=== PATIENT | female | born 1955 | race Caucasian/White ===

== ENCOUNTER → 2016-10-24 | Outpatient (CLI) | payer OTHER, SELFPAY ==
[~2016-10-24] MED LIST: /ESCI10TA; /LABE20TA; ACET65TA; ALTACE PO; AMLO10TA2 PO; ASPEC325 PO; BABY81CH PO; CAHNTIXC PO; CATA0.1T; CHAN0.5P PO; DRIS50002 PO; FURO20TA2 PO; HCTZ50 PO; HYDROXYZINE; KEFLEX500 PO; LIPITOR20 PO; LISI20TA5; LOSA100T36 PO; METOPROL PO; NICO14DI3; OMEP40CA2 PO; PLAV75TA2; PRILOSECOT PO; PROZ40CA PO; THERAGRAM PO; ZOCO40TA; ZOCO5TAB
[2016-10-24 11:21] LABS: BASO % 0.3 % (0.0-1.0); EOS # 0.3 K/mm3 (0.0-0.50); EOS % 3.6 % (0.0-3.0); LARGE UNSTAINED CELL # 0.2 K/mm3 (0.0-0.4); LARGE UNSTAINED CELL % 2.6 % (0.0-4.0); LYMPH # 2.3 K/mm3 (1.5-4.5); LYMPH % 26.1 % (24.0-44.0); MEAN CORPUSCULAR HEMOGLOBIN 28.3 pg (27.0-33.0); MEAN CORPUSCULAR HGB CONC 32.2 g/dl (32.0-36.5); MEAN CORPUSCULAR VOLUME 87.7 fl (80.0-96.0); MONO # 0.3 K/mm3 (0.0-0.8); MONO % 3.7 % (0.0-5.0); NEUTROPHILS # 5.6 K/mm3 (1.8-7.7); NEUTROPHILS % 63.6 % (36.0-66.0); PLATELET COUNT, AUTOMATED 309 k/mm3 (150-450); RED CELL DISTRIBUTION WIDTH 13.7 % (11.5-14.5); WHITE BLOOD COUNT 8.8 K/mm3 (4.0-10.0)
[2016-10-24 12:20] LABS: ALBUMIN 4.1 GM/DL (3.2-5.2); ALBUMIN/GLOBULIN RATIO 1.24 (1.00-1.93); ALKALINE PHOSPHATASE 147 U/L (45-117); ALT/SGPT 55 U/L (12-78); ANION GAP 10 MEQ/L (8-16); AST/SGOT 37 U/L (15-37); BILIRUBIN,TOTAL 0.4 MG/DL (0.2-1.0); BLOOD UREA NITROGEN 11 MG/DL (7-18); CALCIUM LEVEL 9.4 MG/DL (8.8-10.2); CARBON DIOXIDE LEVEL 27 MEQ/L (21-32); CHLORIDE LEVEL 105 MEQ/L (98-107); CHOLESTEROL LEVEL 220 MG/DL (<200); CREATININE FOR GFR 0.91 MG/DL (0.55-1.02); GLOMERULAR FILTRATION RATE > 60.0 (>45); GLUCOSE, FASTING 107 MG/DL (80-110); POTASSIUM SERUM 4.5 MEQ/L (3.5-5.1); SODIUM LEVEL 142 MEQ/L (136-145); TOTAL PROTEIN 7.4 GM/DL (6.4-8.2); TRIGLYCERIDES LEVEL 182 MG/DL (<150)
== END ==
LOC: M LAB 10:40
PROVIDERS: ATTEND Family Medicine Addiction Medicine
DX: F32.9 Major depressive disorder, single episode, unspecified (principal); I10 Essential (primary) hypertension

== ENCOUNTER → 2016-12-17 | Outpatient (CLI) | payer MEDICAID, OTHER | LOC: M LAB 09:53 | PROVIDERS: ATTEND Family Medicine Addiction Medicine | DX: E55.9 Vitamin D deficiency, unspecified (principal) ==

== ENCOUNTER → 2017-03-13 | Outpatient (CLI) | payer OTHER ==
--- NOTE | 2017-03-13 12:13 | REPMRS ---
Patient History The patient states she has not had a clinical breast exam in over a year. Patient is postmenopausal. Family history of colorectal cancer in mother at age 50 or over. Benign excisional biopsy of the right breast, 1974. Digital Woman Screen Mammo: March 13, 2017 - Exam #: [id number] Bilateral CC and MLO view(s) were taken. Technologist: Tash Rivers, Technologist No prior studies available for comparison. FINDINGS: There are scattered fibroglandular densities. The patient states that there are no palpable abnormalities or other breast complaints. There has been no change in the appearance of the mammogram from the prior studies. There is a mild amount of residual fibroglandular tissue which is fairly symmetric. There is no interval development of dominant mass, architectural distortion, or clustered microcalcification suggestive of malignancy. ASSESSMENT: BI-RADS/ACR category 1 mammogram. Negative. Recommendation Routine screening mammogram in 1 year (for women over age 40). This mammogram was interpreted with the aid of an FDA-approved computer-aided dectection system. A. Negative x-ray reports should not delay biopsy if a dominant or clinically suspicious mass is present. B. Not all cancers are identified by mammography. C. Adenosis and dense breast may obscure an underlying neoplasm. Electronically Signed By: Jaron Lizama M.D. 03/13/17 1319
== END ==
LOC: M WHC 10:41
PROVIDERS: ATTEND Family Medicine Addiction Medicine
DX: Z12.31 Encounter for screening mammogram for malignant neoplasm of breast (principal); Z78.0 Asymptomatic menopausal state

== ENCOUNTER → 2017-03-19 | Outpatient (REF) | payer OTHER | LOC: M LAB REF 16:55 | PROVIDERS: ATTEND Family Medicine Addiction Medicine | DX: Z12.4 Encounter for screening for malignant neoplasm of cervix (principal) ==

== ENCOUNTER → 2018-01-19 | Outpatient (REF) | payer OTHER ==
[2018-01-19 13:43] LABS: ESTIMATED AVERAGE GLUCOSE 131 MG/DL (60-110); HEMOGLOBIN A1c 6.2 %
[2018-01-19 13:51] LABS: ALBUMIN 3.9 GM/DL (3.2-5.2); ALBUMIN/GLOBULIN RATIO 0.98 (1.00-1.93); ALKALINE PHOSPHATASE 114 U/L (45-117); ALT/SGPT 53 U/L (12-78); ANION GAP 9 MEQ/L (8-16); AST/SGOT 51 U/L (7-37); BILIRUBIN,TOTAL 0.4 MG/DL (0.2-1.0); BLOOD UREA NITROGEN 20 MG/DL (7-18); CALCIUM LEVEL 9.4 MG/DL (8.8-10.2); CARBON DIOXIDE LEVEL 30 MEQ/L (21-32); CHLORIDE LEVEL 102 MEQ/L (98-107); CHOLESTEROL LEVEL 202 MG/DL (<200); CREATININE FOR GFR 0.96 MG/DL (0.55-1.30); GLOMERULAR FILTRATION RATE > 60.0 (>45); GLUCOSE, FASTING 105 MG/DL (70-100); HDL CHOLESTEROL 50 MG/DL (>40); LDL CHOLESTEROL 101.8 MG/DL (<100); NON-HDL-C 152 MG/DL; POTASSIUM SERUM 4.2 MEQ/L (3.5-5.1); SODIUM LEVEL 141 MEQ/L (136-145); TOTAL PROTEIN 7.9 GM/DL (6.4-8.2); TRIGLYCERIDES LEVEL 251 MG/DL (<150)
== END ==
LOC: M LAB REF 13:01
DX: I10 Essential (primary) hypertension (principal)

== ENCOUNTER 2018-01-29 08:35 | Day surgery (SDC) | payer OTHER ==
[2018-01-29] MEDS ORDERED: PROPOFOL 200 MG/20 ML VIAL As Ordered ×3 (08:57→09:13)
[2018-01-29] MEDS: NS 1,000 ML IV (08:57)
== END 2018-01-29 10:12 | disposition home or self-care (01) ==
LOC: M OPP 10:12
DX: Z12.11 Encounter for screening for malignant neoplasm of colon (principal); Z86.010 Personal history of colon polyps; D12.4 Benign neoplasm of descending colon; D12.3 Benign neoplasm of transverse colon; I10 Essential (primary) hypertension; E78.5 Hyperlipidemia, unspecified; K21.9 Gastro-esophageal reflux disease without esophagitis; K44.9 Diaphragmatic hernia without obstruction or gangrene; E55.9 Vitamin D deficiency, unspecified; R60.0 Localized edema; M19.90 Unspecified osteoarthritis, unspecified site; R21 Rash and other nonspecific skin eruption; F41.9 Anxiety disorder, unspecified; F32.9 Major depressive disorder, single episode, unspecified; Z86.73 Personal history of transient ischemic attack (TIA), and cerebral infarction without residual deficits; Z78.0 Asymptomatic menopausal state; R06.83 Snoring; R06.02 Shortness of breath; F17.210 Nicotine dependence, cigarettes, uncomplicated; Z88.8 Allergy status to other drugs, medicaments and biological substances; Z79.82 Long term (current) use of aspirin; Z79.899 Other long term (current) drug therapy; Z80.0 Family history of malignant neoplasm of digestive organs
CPT/HCPCS: 45385

== ENCOUNTER 2018-04-30 17:24 | Emergency (ER) | payer OTHER ==
[2018-04-30 19:44] LABS: BASO # 0.1 10^3/uL (0.0-0.2); BASO % 0.4 % (0.0-1.0); EOS # 0.4 10^3/uL (0.0-0.50); EOS % 3.1 % (0.0-3.0); HEMATOCRIT 38.1 % (36.0-47.0); IMMATURE GRANULOCYTE % 0.5 % (0-3.0); LYMPH % 26.5 % (24.0-44.0); MEAN CORPUSCULAR HEMOGLOBIN 27.7 pg (27.0-33.0); MEAN CORPUSCULAR HGB CONC 31.5 g/dl (32.0-36.5); MONO # 0.8 10^3/uL (0.0-0.8); MONO % 6.7 % (0.0-5.0); NEUTROPHILS # 7.2 10^3/uL (1.8-7.7); NEUTROPHILS % 62.8 % (36.0-66.0); PLATELET COUNT, AUTOMATED 357 10^3/uL (150-450); RED BLOOD COUNT 4.33 10^6/uL (4.00-5.40); RED CELL DISTRIBUTION WIDTH 14.6 % (11.5-14.5); WHITE BLOOD COUNT 11.4 10^3/uL (4.0-10.0)
[2018-04-30 19:58] LABS: ESTIMATED AVERAGE GLUCOSE 117 MG/DL (60-110); HEMOGLOBIN A1c 5.7 %
[2018-04-30 20:05] LABS: ALBUMIN/GLOBULIN RATIO 1.03 (1.00-1.93); ALKALINE PHOSPHATASE 125 U/L (45-117); ALT/SGPT 31 U/L (12-78); ANION GAP 10 MEQ/L (8-16); AST/SGOT 22 U/L (7-37); BILIRUBIN,DIRECT < 0.1 MG/DL (0.0-0.2); BILIRUBIN,TOTAL 0.3 MG/DL (0.2-1.0); BLOOD UREA NITROGEN 23 MG/DL (7-18); CALCIUM LEVEL 9.2 MG/DL (8.8-10.2); CARBON DIOXIDE LEVEL 28 MEQ/L (21-32); CHLORIDE LEVEL 103 MEQ/L (98-107); GLOMERULAR FILTRATION RATE 37.6 (>45); GLUCOSE, FASTING 117 MG/DL (70-100); SODIUM LEVEL 141 MEQ/L (136-145); TOTAL PROTEIN 7.9 GM/DL (6.4-8.2)
[2018-04-30] MEDS: NS 1,000 ML IV (20:30)
[2018-04-30] MEDS ORDERED: ceFAZolin 1GM INJ (J0690 PER 500MG) IM (20:45)
== END 2018-04-30 23:02 | disposition home or self-care (01) ==
LOC: M ED 17:24
DX: L03.116 Cellulitis of left lower limb (principal); I87.2 Venous insufficiency (chronic) (peripheral); N17.9 Acute kidney failure, unspecified; I10 Essential (primary) hypertension; K21.9 Gastro-esophageal reflux disease without esophagitis; F17.210 Nicotine dependence, cigarettes, uncomplicated; Z79.899 Other long term (current) drug therapy; Z79.82 Long term (current) use of aspirin
CPT/HCPCS: J0690

== ENCOUNTER 2018-05-04 19:55 | Emergency (ER) | payer OTHER ==
[2018-05-04] MEDS: IBUPROFEN 600 MG TAB PO (20:45)
== END 2018-05-04 21:56 | disposition home or self-care (01) ==
LOC: M ED 19:55
DX: L03.115 Cellulitis of right lower limb (principal); L03.116 Cellulitis of left lower limb; S80.812A Abrasion, left lower leg, initial encounter; S80.12XA Contusion of left lower leg, initial encounter; W22.8XXA Striking against or struck by other objects, initial encounter; Y92.89 Other specified places as the place of occurrence of the external cause; I10 Essential (primary) hypertension; E11.9 Type 2 diabetes mellitus without complications; F17.200 Nicotine dependence, unspecified, uncomplicated; Z79.899 Other long term (current) drug therapy; Z79.2 Long term (current) use of antibiotics; Z79.82 Long term (current) use of aspirin; Z88.8 Allergy status to other drugs, medicaments and biological substances
CPT/HCPCS: 73590

== ENCOUNTER 2018-05-05 05:55 | Inpatient (IN) | payer MEDICAID, OTHER ==
[2018-05-05 06:53] LABS: HEMATOCRIT 35.9 % (36.0-47.0); HEMOGLOBIN 11.3 g/dl (12.0-15.5); MEAN CORPUSCULAR HEMOGLOBIN 27.1 pg (27.0-33.0); MEAN CORPUSCULAR HGB CONC 31.5 g/dl (32.0-36.5); MEAN CORPUSCULAR VOLUME 86.1 fl (80.0-96.0); PLATELET COUNT, AUTOMATED 359 10^3/uL (150-450); RED BLOOD COUNT 4.17 10^6/uL (4.00-5.40); RED CELL DISTRIBUTION WIDTH 14.5 % (11.5-14.5); WHITE BLOOD COUNT 8.5 10^3/uL (4.0-10.0)
[2018-05-05 07:26] LABS: ALBUMIN 3.8 GM/DL (3.2-5.2); ALKALINE PHOSPHATASE 116 U/L (45-117); ALT/SGPT 28 U/L (12-78); ANION GAP 9 MEQ/L (8-16); AST/SGOT 24 U/L (7-37); BILIRUBIN,DIRECT < 0.1 MG/DL (0.0-0.2); BILIRUBIN,TOTAL 0.3 MG/DL (0.2-1.0); BLOOD UREA NITROGEN 24 MG/DL (7-18); CALCIUM LEVEL 9.1 MG/DL (8.8-10.2); CARBON DIOXIDE LEVEL 23 MEQ/L (21-32); CHLORIDE LEVEL 104 MEQ/L (98-107); CREATININE FOR GFR 1.37 MG/DL (0.55-1.30); GLOMERULAR FILTRATION RATE 41.7 (>45); GLUCOSE, FASTING 102 MG/DL (70-100); SALICYLATE LEVEL 2.8 MG/DL (5.0-30.0); SODIUM LEVEL 136 MEQ/L (136-145); TOTAL PROTEIN 7.6 GM/DL (6.4-8.2)
[2018-05-05 07:27] LABS: ACETAMINOPHEN LEVEL < 2.0 UG/ML (10.0-30.0)
[2018-05-05 09:16] LABS: AMPHETAMINES LEVEL URINE NEGATIVE (NEGATIVE); BARBITURATES URINE NEGATIVE (NEGATIVE); BENZODIAZEPINES URINE NEGATIVE (NEGATIVE); CANNABINOIDS URINE POSITIVE (NEGATIVE); COCAINE METABOLITE URINE NEGATIVE (NEGATIVE); METHADONE URINE NEGATIVE (NEGATIVE); OPIATES URINE NEGATIVE (NEGATIVE); PHENCYCLIDINE URINE NEGATIVE (NEGATIVE)
[2018-05-05] MEDS ORDERED: MAALOX 30 ML SUSP *UDC PO (11:30)
[2018-05-05] MEDS ORDERED: ACETAMINOPHEN TAB 650MG DOSE (2X325MG) PO (11:30)
[2018-05-05] MEDS ORDERED: traZODone 50 MG TAB PO (11:30)
[2018-05-05] MEDS ORDERED: MOM 30ML SUSPENSION UDC PO (11:30)
[2018-05-05] MEDS: OMEPRAZOLE 20 MG CAP PO (16:13)
[2018-05-05] MEDS: ASPIRIN 81 MG ENTERIC TAB PO (16:13)
[2018-05-05] MEDS: amLODIPine 10 MG TAB PO (16:14)
[2018-05-05] MEDS: LOSARTAN 50 MG TAB PO (16:15)
[2018-05-05] MEDS: hydroCHLOROthiazide 25 MG TAB PO (16:15)
[2018-05-05] MEDS: NICOTINE 21MG/24HR 1 EA TRANSDERMAL TD (18:32)
[2018-05-05] MEDS: BACTRIM 160MG/800MG DS TAB PO (21:20)
[2018-05-05] MEDS: oxyBUTYnin 5 MG TAB PO (21:20)
[2018-05-05] MEDS: FLUOCINONIDE 0.05% OINT 15 GM TOP (21:21)
[2018-05-06] MEDS: hydroCHLOROthiazide 25 MG TAB PO (09:25)
[2018-05-06] MEDS: oxyBUTYnin 5 MG TAB PO ×2 (09:25→21:11)
[2018-05-06] MEDS: LOSARTAN 50 MG TAB PO (09:26)
[2018-05-06] MEDS: BACTRIM 160MG/800MG DS TAB PO ×2 (09:26→21:11)
[2018-05-06] MEDS: ASPIRIN 81 MG ENTERIC TAB PO (09:26)
[2018-05-06] MEDS: OMEPRAZOLE 20 MG CAP PO (09:26)
[2018-05-06] MEDS: amLODIPine 10 MG TAB PO (09:26)
[2018-05-06] MEDS: NICOTINE 21MG/24HR 1 EA TRANSDERMAL TD (09:28)
[2018-05-06] MEDS: FLUOCINONIDE 0.05% OINT 15 GM TOP ×2 (09:30→21:00)
[2018-05-06] MEDS ORDERED: ALBUTEROL 90 MCG/ACT 8GM HFA INHALER INH (10:15)
[2018-05-06] MEDS: DULoxetine 30 MG CAP (CYMBALTA) PO (15:16)
[2018-05-07] MEDS: NICOTINE 21MG/24HR 1 EA TRANSDERMAL TD (08:35)
[2018-05-07] MEDS: BACTRIM 160MG/800MG DS TAB PO (08:35)
[2018-05-07] MEDS: LOSARTAN 50 MG TAB PO (08:35)
[2018-05-07] MEDS: OMEPRAZOLE 20 MG CAP PO (08:35)
[2018-05-07] MEDS: ASPIRIN 81 MG ENTERIC TAB PO (08:35)
[2018-05-07] MEDS: amLODIPine 10 MG TAB PO (08:36)
[2018-05-07] MEDS: oxyBUTYnin 5 MG TAB PO (08:36)
[2018-05-07] MEDS: DULoxetine 30 MG CAP (CYMBALTA) PO (08:36)
[2018-05-07] MEDS: hydroCHLOROthiazide 25 MG TAB PO (08:36)
[2018-05-07] MEDS: FLUOCINONIDE 0.05% OINT 15 GM TOP (08:37)
[2018-05-07 08:50] LABS: ANION GAP 8 MEQ/L (8-16); BLOOD UREA NITROGEN 15 MG/DL (7-18); CALCIUM LEVEL 9.7 MG/DL (8.8-10.2); CARBON DIOXIDE LEVEL 26 MEQ/L (21-32); CHLORIDE LEVEL 103 MEQ/L (98-107); CREATININE FOR GFR 1.04 MG/DL (0.55-1.30); FREE THYROXINE INDEX 3.5 % (1.3-4.8); GLOMERULAR FILTRATION RATE 57.4 (>45); GLUCOSE, FASTING 95 MG/DL (70-100); POTASSIUM SERUM 4.6 MEQ/L (3.5-5.1); SODIUM LEVEL 137 MEQ/L (136-145); T UPTAKE 31 % (30-39); THYROXINE (T4) 11.3 UG/DL (4.5-12.0)
[2018-05-11 14:14] LABS: ETHYL ALCOHOL (ETHANOL) < 0.003 % (0.000-0.010)
== END 2018-05-07 13:49 | disposition home or self-care (01) | DRG 754 ==
LOC: M ED 05:55 → M ED INP 11:16 → M PSY 12:15
DX: F32.9 Major depressive disorder, single episode, unspecified (principal); Z68.42 Body mass index [BMI] 45.0-49.9, adult; I10 Essential (primary) hypertension; N32.81 Overactive bladder; Z59.0 Homelessness; Z79.899 Other long term (current) drug therapy; Z79.82 Long term (current) use of aspirin; Z88.8 Allergy status to other drugs, medicaments and biological substances; F41.9 Anxiety disorder, unspecified; K21.9 Gastro-esophageal reflux disease without esophagitis; E66.9 Obesity, unspecified; R26.89 Other abnormalities of gait and mobility; F17.200 Nicotine dependence, unspecified, uncomplicated

== ENCOUNTER 2019-01-07 12:12 | Emergency (ER) | payer MEDICAID, OTHER ==
[~2019-01-07] VITALS: Ht 165.1 cm; Wt 127.3 kg
[~2019-01-07 12:12] MED LIST changes: -/ESCI10TA; -/LABE20TA; -AMLO10TA2 PO; +AMLO10TA5 PO; +BACT800T5 PO; +BUPR300T34; +DESO0.0522 TOP; -DRIS50002 PO; +DRIS50003 PO; +DULO30CA9 PO; +FLUO5OI TOP; +HYDR25TAB; +IBUP-1022 PO; +LABE1TAB11; +LEXA1TAB; -LOSA100T36 PO; +LOSA100T50 PO; +OXYB5TAB10; +VENTAER INH; +VITA100067 PO
[2019-01-07 12:51] VITALS: BP 159/65
[2019-01-07] MEDS ORDERED: ACETAMINOPHEN TAB 650MG DOSE (2X325MG) PO ONE (13:15)
--- NOTE | 2019-01-07 15:57 | REP ---
RIGHT FOOT COMPLETE: 01/07/2019. Clinical history: Evaluate for foreign body or possible sewing needle. Findings: No prior study. Minor degenerative changes seen at IP and first MTP joints of the foot. There is no fracture, avulsion or erosion, subluxation or other acute bony finding in the metatarsals, tarsal bones and hind foot show no acute tear fracture, destructive lesion. There are plantar and Achilles insertional spurs. Marginal osteophytes dorsally at the tarsal articulations on the lateral view. I do not see a radiopaque foreign body that would suggest a sewing needle or other similar finding on any of these images. Impression: 1. Degenerative changes of the foot at multiple joints involving toe, tarsal articulations and the hind foot without fracture, focal lesion, erosion or subluxation. 2. No radiopaque metallic foreign body identified. 3. Heel spurs in plantar and posterior calcaneal aspects. Electronically Signed by Javad Moise MD 01/07/2019 05:17 P
== END 2019-01-07 14:06 | disposition home or self-care (01) ==
LOC: M ED 12:12
DX: B07.0 Plantar wart (principal); Z87.891 Personal history of nicotine dependence

== ENCOUNTER → 2019-02-11 | Outpatient (REF) | payer OTHER, MEDICAID ==
[2019-02-11 14:04] LABS: ALBUMIN 3.8 GM/DL (3.2-5.2); ALT/SGPT 59 U/L (12-78); BILIRUBIN,TOTAL 0.3 MG/DL (0.2-1.0); BLOOD UREA NITROGEN 12 MG/DL (7-18); CALCIUM LEVEL 9.5 MG/DL (8.8-10.2); CARBON DIOXIDE LEVEL 27 MEQ/L (21-32); CHLORIDE LEVEL 104 MEQ/L (98-107); CHOLESTEROL LEVEL 252 MG/DL (<200); CHOLESTEROL RISK RATIO 4.846 (<5); GLOMERULAR FILTRATION RATE > 60.0 (>45); GLUCOSE, FASTING 104 MG/DL (70-100); HDL CHOLESTEROL 52 MG/DL (>40); LDL CHOLESTEROL 151 MG/DL (<100); NON-HDL-C 200 MG/DL; POTASSIUM SERUM 4.2 MEQ/L (3.5-5.1); SODIUM LEVEL 140 MEQ/L (136-145); TOTAL PROTEIN 7.9 GM/DL (6.4-8.2); TRIGLYCERIDES LEVEL 246 MG/DL (<150)
== END ==
LOC: M LAB REF 12:25
PROVIDERS: ATTEND Family Medicine Addiction Medicine
DX: I12.9 Hypertensive chronic kidney disease with stage 1 through stage 4 chronic kidney disease, or unspecified chronic kidney disease (principal); N18.3 Chronic kidney disease, stage 3 (moderate)

== ENCOUNTER → 2019-05-17 | Outpatient (REF) | payer OTHER, MEDICAID ==
[2019-05-17 18:48] LABS: FREE T4 1.03 NG/DL (0.76-1.46); THYROID STIMULATING HORMONE 2.03 uIU/ML (0.358-3.740)
== END ==
LOC: M LAB REF 18:02
PROVIDERS: ATTEND Nurse Practitioner Family
DX: R73.9 Hyperglycemia, unspecified (principal); E03.9 Hypothyroidism, unspecified

== ENCOUNTER → 2020-07-16 | Outpatient (REF) | payer OTHER, MEDICAID ==
[~2020-07-16] MED LIST changes: -AMLO10TA5 PO; +AMLO1TAB25 PO; -BUPR300T34; +BUPR300T92; -OMEP40CA2 PO; +OMEP40CA97 PO
[2020-07-16 17:58] LABS: BASO % 0.4 % (0.0-1.0); EOS # 0.2 10^3/uL (0.0-0.5); EOS % 2.2 % (0.0-3.0); HEMATOCRIT 42.8 % (36.0-47.0); HEMOGLOBIN 12.9 g/dl (12.0-15.5); LYMPH # 2.5 10^3/uL (1.5-5.0); LYMPH % 26.2 % (24.0-44.0); MEAN CORPUSCULAR HEMOGLOBIN 26.3 pg (27.0-33.0); MEAN CORPUSCULAR HGB CONC 30.1 g/dl (32.0-36.5); MEAN CORPUSCULAR VOLUME 87.3 fl (80.0-96.0); MONO # 0.6 10^3/uL (0.0-0.8); MONO % 5.9 % (0.0-5.0); NEUTROPHILS # 6.2 10^3/uL (1.5-8.5); PLATELET COUNT, AUTOMATED 273 10^3/uL (150-450); WHITE BLOOD COUNT 9.5 10^3/uL (4.0-10.0)
[2020-07-16 18:33] LABS: ALT/SGPT 20 U/L (12-78); BILIRUBIN,TOTAL 0.3 MG/DL (0.2-1.0); BLOOD UREA NITROGEN 14 MG/DL (7-18); CALCIUM LEVEL 9.9 MG/DL (8.8-10.2); CARBON DIOXIDE LEVEL 28 MEQ/L (21-32); CHLORIDE LEVEL 105 MEQ/L (98-107); CHOLESTEROL LEVEL 224 MG/DL (<200); CHOLESTEROL RISK RATIO 4.148 (<5); FREE T4 1.06 NG/DL (0.76-1.46); GLOMERULAR FILTRATION RATE > 60.0 (>45); GLUCOSE, FASTING 90 MG/DL (70-100); HDL CHOLESTEROL 54 MG/DL (>40); LDL CHOLESTEROL 128 MG/DL (<100); NON-HDL-C 170 MG/DL; POTASSIUM SERUM 4.6 MEQ/L (3.5-5.1); SODIUM LEVEL 138 MEQ/L (136-145); TOTAL PROTEIN 7.4 GM/DL (6.4-8.2); TRIGLYCERIDES LEVEL 210 MG/DL (<150)
[2020-07-16 19:37] LABS: HEMOGLOBIN A1c 5.9 %
== END ==
LOC: M LAB REF 16:25
PROVIDERS: ATTEND Physician Assistant
DX: E03.9 Hypothyroidism, unspecified (principal); J44.9 Chronic obstructive pulmonary disease, unspecified; R73.9 Hyperglycemia, unspecified; E78.5 Hyperlipidemia, unspecified

== ENCOUNTER → 2020-11-22 | Outpatient (REF) | payer OTHER ==
[~2020-11-22] MED LIST changes: +HYDR-3490; -HYDR25TAB
[2020-11-22 18:26] LABS: ALBUMIN 4.1 GM/DL (3.2-5.2); ALT/SGPT 21 U/L (12-78); BILIRUBIN,TOTAL 0.4 MG/DL (0.2-1.0); BLOOD UREA NITROGEN 10 MG/DL (7-18); CALCIUM LEVEL 9.5 MG/DL (8.8-10.2); CARBON DIOXIDE LEVEL 26 MEQ/L (21-32); CHLORIDE LEVEL 106 MEQ/L (98-107); CHOLESTEROL LEVEL 237 MG/DL (<200); CREATININE FOR GFR 0.92 MG/DL (0.55-1.30); GLOMERULAR FILTRATION RATE > 60.0 (>45); GLUCOSE, FASTING 81 MG/DL (70-100); HDL CHOLESTEROL 50 MG/DL (>40); LDL CHOLESTEROL 127 MG/DL (<100); NON-HDL-C 187 MG/DL; POTASSIUM SERUM 4.4 MEQ/L (3.5-5.1); SODIUM LEVEL 139 MEQ/L (136-145); TOTAL PROTEIN 7.6 GM/DL (6.4-8.2); TRIGLYCERIDES LEVEL 301 MG/DL (<150)
[2020-11-22 19:00] LABS: HEMOGLOBIN A1c 5.9 %
== END ==
LOC: M LAB REF 16:17
PROVIDERS: ATTEND Physician Assistant
DX: N18.30 Chronic kidney disease, stage 3 unspecified (principal); E03.9 Hypothyroidism, unspecified; E78.5 Hyperlipidemia, unspecified

== ENCOUNTER → 2021-12-04 | Outpatient (CLI) | payer OTHER ==
[~2021-12-04] MED LIST changes: +LOSA100T45 PO; -LOSA100T50 PO; +OMEP40CA4 PO; -OMEP40CA97 PO
[2021-12-04 13:42] LABS: HEMATOCRIT 46.2 % (36.0-47.0); HEMOGLOBIN 14.2 g/dl (12.0-15.5); MEAN CORPUSCULAR HEMOGLOBIN 27.2 pg (27.0-33.0); MEAN CORPUSCULAR HGB CONC 30.7 g/dl (32.0-36.5); MEAN CORPUSCULAR VOLUME 88.5 fl (80.0-96.0); PLATELET COUNT, AUTOMATED 271 10^3/uL (150-450); RED BLOOD COUNT 5.22 10^6/uL (4.00-5.40); WHITE BLOOD COUNT 9.4 10^3/uL (4.0-10.0)
[2021-12-04 14:21] LABS: ALT/SGPT 29 U/L (12-78); BILIRUBIN,TOTAL 0.4 MG/DL (0.2-1.0); BLOOD UREA NITROGEN 16 MG/DL (7-18); CALCIUM LEVEL 10.1 MG/DL (8.8-10.2); CARBON DIOXIDE LEVEL 28 MEQ/L (21-32); CHLORIDE LEVEL 109 MEQ/L (98-107); CHOLESTEROL LEVEL 234 MG/DL (<200); CREATININE FOR GFR 0.78 MG/DL (0.55-1.30); GLOMERULAR FILTRATION RATE > 60.0 (>45); GLUCOSE, FASTING 92 MG/DL (70-100); HDL CHOLESTEROL 60 MG/DL (>40); LDL CHOLESTEROL 143 MG/DL (<100); NON-HDL-C 174 MG/DL; POTASSIUM SERUM 4.7 MEQ/L (3.5-5.1); SODIUM LEVEL 142 MEQ/L (136-145); TOTAL PROTEIN 7.4 GM/DL (6.4-8.2); TRIGLYCERIDES LEVEL 154 MG/DL (<150)
[2021-12-04 14:54] LABS: HEMOGLOBIN A1c 5.6 %
== END ==
LOC: M LAB 11:29
PROVIDERS: ATTEND Internal Medicine
DX: Z79.899 Other long term (current) drug therapy (principal); E66.9 Obesity, unspecified

== ENCOUNTER → 2021-12-06 | Outpatient (REF) | payer MEDICARE, OTHER ==
[2021-12-06 11:17] LABS: APPEARANCE, URINE TURBID (CLEAR); BACTERIA, URINE AUTO 2+ (NEGATIVE); BILIRUBIN, URINE AUTO NEGATIVE (NEGATIVE); BLOOD, URINE BLOOD NEGATIVE (NEGATIVE); COLOR, URINE AMBER (YELLOW); GLUCOSE, URINE (UA) AUTO NEGATIVE (NEGATIVE); KETONE, URINE AUTO NEGATIVE (NEGATIVE); LEUKOCYTE ESTERASE, URINE AUTO NEGATIVE (NEGATIVE); MUCUS, URINE SMALL (NEGATIVE); NITRITE, URINE AUTO NEGATIVE (NEGATIVE); PROTEIN, URINE AUTO 2+ mg/dL (NEGATIVE); RBC, URINE AUTO 0 /HPF (0-3); SPECIFIC GRAVITY URINE AUTO 1.029 (1.002-1.035); SQUAMOUS EPITHELIAL CELL UR AU 4 /HPF (0-6); TRIPLE PHOSPHATE CRYSTALS SMALL; UROBILINOGEN, URINE AUTO 0.2 mg/dL (0.0-2.0); WBC, URINE AUTO 0 /HPF (0-3)
== END ==
LOC: M LAB REF 10:44
PROVIDERS: ATTEND Internal Medicine
DX: E66.9 Obesity, unspecified (principal); I10 Essential (primary) hypertension; Z79.899 Other long term (current) drug therapy

== ENCOUNTER → 2021-12-23 | Outpatient (CLI) | payer MEDICARE | LOC: M RAD 13:05 | PROVIDERS: ATTEND Internal Medicine | DX: Z12.2 Encounter for screening for malignant neoplasm of respiratory organs (principal); F17.218 Nicotine dependence, cigarettes, with other nicotine-induced disorders ==

== ENCOUNTER 2022-06-11 12:34 | Inpatient (IN) | payer MEDICARE, OTHER ==
[~2022-06-11] VITALS: Ht 162.6 cm; Wt 125.4 kg
[~2022-06-11 12:34] MED LIST changes: +FLUO-215 TOP; -FLUO5OI TOP; -HYDR-3490; +HYDR-3490 PO
[2022-06-11] MEDS ORDERED: NS 1,000 ML IV ONE (13:25)
[2022-06-11] MEDS ORDERED: OXYB10TA23 PO (13:38)
[2022-06-11] MEDS ORDERED: LISI20TA33 PO (13:38)
[2022-06-11 14:11] LABS: BASO % 0.2 % (0.0-1.0); EOS # 0.1 10^3/uL (0.0-0.5); EOS % 0.3 % (0.0-3.0); HEMOGLOBIN 14.5 g/dl (12.0-15.5); LYMPH # 1.9 10^3/uL (1.5-5.0); LYMPH % 9.2 % (24.0-44.0); MEAN CORPUSCULAR HEMOGLOBIN 27.6 pg (27.0-33.0); MEAN CORPUSCULAR HGB CONC 31.5 g/dl (32.0-36.5); MEAN CORPUSCULAR VOLUME 87.5 fl (80.0-96.0); MONO # 1.2 10^3/uL (0.0-0.8); MONO % 5.9 % (2.0-8.0); NEUTROPHILS % 83.9 % (36.0-66.0); PLATELET COUNT, AUTOMATED 313 10^3/uL (150-450); RED BLOOD COUNT 5.26 10^6/uL (4.00-5.40); WHITE BLOOD COUNT 20.3 10^3/uL (4.0-10.0)
[2022-06-11 14:49] LABS: CALCIUM LEVEL 9.8 MG/DL (8.8-10.2); CREATININE FOR GFR 1.24 MG/DL (0.55-1.30); GLOMERULAR FILTRATION RATE 46.2 (>45); POTASSIUM SERUM 3.8 MEQ/L (3.5-5.1)
[2022-06-11] MEDS ORDERED: ASPI81TA26 PO (16:04)
[2022-06-11] MEDS ORDERED: DULO30CA9 PO (16:04)
[2022-06-11] MEDS ORDERED: VENTAER INH (16:04)
[2022-06-11] MEDS ORDERED: HOME MED LIST COMPLETE! XX SCH (16:05)
[2022-06-11] MEDS: NS 1,000 ML IV SCH (17:35)
[2022-06-11] MEDS: ALBUTEROL SULFATE 2.5 MG/0.5 ML INH NEB SOLN NEB SCH (20:00)
[2022-06-11 20:43] VITALS: BP 125/69
[2022-06-12 06:00] VITALS: BP 125/83
[2022-06-12] MEDS: NS 1,000 ML IV SCH (06:07)
[2022-06-12] MEDS: ALBUTEROL SULFATE 2.5 MG/0.5 ML INH NEB SOLN NEB SCH ×3 (07:20→19:58)
[2022-06-12 09:12] LABS: BLOOD UREA NITROGEN 19 MG/DL (7-18); CALCIUM LEVEL 8.3 MG/DL (8.8-10.2); CARBON DIOXIDE LEVEL 26 MEQ/L (21-32); CHLORIDE LEVEL 108 MEQ/L (98-107); CREATININE FOR GFR 0.84 MG/DL (0.55-1.30); GLOMERULAR FILTRATION RATE > 60.0 (>45); GLUCOSE, FASTING 112 MG/DL (70-100); POTASSIUM SERUM 3.7 MEQ/L (3.5-5.1); SODIUM LEVEL 139 MEQ/L (136-145)
[2022-06-12 09:14] LABS: BASO % 0.3 % (0.0-1.0); EOS # 0.4 10^3/uL (0.0-0.5); EOS % 3.6 % (0.0-3.0); HEMATOCRIT 40.2 % (36.0-47.0); LYMPH # 2.7 10^3/uL (1.5-5.0); LYMPH % 22.9 % (24.0-44.0); MEAN CORPUSCULAR HEMOGLOBIN 27.9 pg (27.0-33.0); MEAN CORPUSCULAR HGB CONC 30.8 g/dl (32.0-36.5); MEAN CORPUSCULAR VOLUME 90.5 fl (80.0-96.0); MONO # 0.7 10^3/uL (0.0-0.8); MONO % 6.1 % (2.0-8.0); NEUTROPHILS # 7.6 10^3/uL (1.5-8.5); NEUTROPHILS % 66.3 % (36.0-66.0); PLATELET COUNT, AUTOMATED 250 10^3/uL (150-450); RED BLOOD COUNT 4.44 10^6/uL (4.00-5.40); WHITE BLOOD COUNT 11.6 10^3/uL (4.0-10.0)
[2022-06-12] MEDS: OMEPRAZOLE 20MG CAP PO SCH (09:15)
[2022-06-12] MEDS: ASPIRIN 81MG ENTERIC TABLET PO SCH (09:15)
[2022-06-12 09:55] LABS: HEMOGLOBIN 12.4 g/dl (12.0-15.5)
[2022-06-12 14:00] VITALS: BP 104/55
[2022-06-12 20:00] VITALS: BP 104/55
[2022-06-12] MEDS ORDERED: ACETAMINOPHEN TAB 650MG DOSE (2X325MG) PO PRN (21:10)
[2022-06-12] MEDS ORDERED: ASPIRIN 325 MG TAB PO ONE (21:20)
[2022-06-13] MEDS: ALBUTEROL SULFATE 2.5 MG/0.5 ML INH NEB SOLN NEB SCH ×3 (01:15→14:00)
[2022-06-13 06:00] VITALS: BP 151/68
[2022-06-13 06:23] LABS: BASO # 0.1 10^3/uL (0.0-0.2); BASO % 0.7 % (0.0-1.0); EOS # 0.5 10^3/uL (0.0-0.5); EOS % 5.4 % (0.0-3.0); HEMATOCRIT 39.2 % (36.0-47.0); HEMOGLOBIN 12.5 g/dl (12.0-15.5); LYMPH # 2.8 10^3/uL (1.5-5.0); LYMPH % 30.8 % (24.0-44.0); MEAN CORPUSCULAR HEMOGLOBIN 28.3 pg (27.0-33.0); MEAN CORPUSCULAR HGB CONC 31.9 g/dl (32.0-36.5); MEAN CORPUSCULAR VOLUME 88.9 fl (80.0-96.0); MONO # 0.7 10^3/uL (0.0-0.8); MONO % 7.3 % (2.0-8.0); NEUTROPHILS # 5.1 10^3/uL (1.5-8.5); NEUTROPHILS % 55.5 % (36.0-66.0); PLATELET COUNT, AUTOMATED 223 10^3/uL (150-450); RED BLOOD COUNT 4.41 10^6/uL (4.00-5.40); WHITE BLOOD COUNT 9.1 10^3/uL (4.0-10.0)
[2022-06-13 06:47] LABS: BLOOD UREA NITROGEN 18 MG/DL (7-18); CALCIUM LEVEL 8.4 MG/DL (8.8-10.2); CARBON DIOXIDE LEVEL 25 MEQ/L (21-32); CHLORIDE LEVEL 110 MEQ/L (98-107); GLOMERULAR FILTRATION RATE > 60.0 (>45); GLUCOSE, FASTING 108 MG/DL (70-100); POTASSIUM SERUM 4.8 MEQ/L (3.5-5.1); SODIUM LEVEL 140 MEQ/L (136-145)
[2022-06-13 08:56] VITALS: BP 151/68
[2022-06-13] MEDS: ASPIRIN 81MG ENTERIC TABLET PO SCH (08:56)
[2022-06-13] MEDS: OMEPRAZOLE 20MG CAP PO SCH (08:56)
[2022-06-13] MEDS ORDERED: oxyBUTYnin *DITROPAN XL* 5 MG TABCR PO SCH (09:00)
[2022-06-13] MEDS ORDERED: DULoxetine 30MG CAPSULE (CYMBALTA) PO SCH (09:00)
[2022-06-13] MEDS ORDERED: CARBAMIDE PEROXIDE 6.5% OTIC SOLN 15ML AU SCH (09:00)
[2022-06-13 14:00] VITALS: BP 152/72
[2022-06-13] MEDS ORDERED: CARBOT AU (15:21)
[2022-06-13] MEDS ORDERED: VENTAER INH (15:22)
== END 2022-06-13 18:15 | disposition home or self-care (01) | DRG 558 ==
LOC: M ED 12:34 → EDBD 12:34 → M ED INP 16:55 → ENRESERVDT 19:35 → ENRESERVTM 19:35 → M MSPAV 20:43
PROVIDERS: ADMIT Internal Medicine Nephrology; ATTEND Internal Medicine Nephrology
DX: M62.82 Rhabdomyolysis (principal); I13.0 Hypertensive heart and chronic kidney disease with heart failure and stage 1 through stage 4 chronic kidney disease, or unspecified chronic kidney disease; Z68.42 Body mass index [BMI] 45.0-49.9, adult; E66.01 Morbid (severe) obesity due to excess calories; F32.A Depression, unspecified; F41.9 Anxiety disorder, unspecified; K21.9 Gastro-esophageal reflux disease without esophagitis; M19.90 Unspecified osteoarthritis, unspecified site; R26.89 Other abnormalities of gait and mobility; I50.9 Heart failure, unspecified; E78.00 Pure hypercholesterolemia, unspecified; Z86.73 Personal history of transient ischemic attack (TIA), and cerebral infarction without residual deficits; N18.2 Chronic kidney disease, stage 2 (mild); F17.200 Nicotine dependence, unspecified, uncomplicated; D72.829 Elevated white blood cell count, unspecified; Z79.82 Long term (current) use of aspirin; Z79.899 Other long term (current) drug therapy; Z88.8 Allergy status to other drugs, medicaments and biological substances; Z20.822 Contact with and (suspected) exposure to COVID-19; J45.909 Unspecified asthma, uncomplicated

== ENCOUNTER 2022-07-12 15:30 | Inpatient (IN) | payer MEDICARE, OTHER ==
[~2022-07-12] VITALS: Ht 162.6 cm; Wt 154.6 kg
[~2022-07-12 15:30] MED LIST changes: +ASPI81TA26 PO; +CARBOT AU; +LISI20TA33 PO; +OXYB10TA23 PO
[2022-07-12 16:32] LABS: HEMATOCRIT 43.3 % (36.0-47.0); HEMOGLOBIN 13.4 g/dl (12.0-15.5); MEAN CORPUSCULAR HEMOGLOBIN 27.7 pg (27.0-33.0); MEAN CORPUSCULAR HGB CONC 30.9 g/dl (32.0-36.5); MEAN CORPUSCULAR VOLUME 89.6 fl (80.0-96.0); PLATELET COUNT, AUTOMATED 252 10^3/uL (150-450); RED BLOOD COUNT 4.83 10^6/uL (4.00-5.40); WHITE BLOOD COUNT 9.8 10^3/uL (4.0-10.0)
[2022-07-12 17:08] LABS: ACETAMINOPHEN LEVEL < 2.0 UG/ML (10.0-20.0); ALBUMIN 3.9 G/DL (3.2-5.2); ALT/SGPT 19 U/L (7.0-40); BILIRUBIN,DIRECT 0.1 MG/DL (<0.4); BILIRUBIN,TOTAL 0.4 MG/DL (0.3-1.2); BLOOD UREA NITROGEN 15 MG/DL (9-23); CALCIUM LEVEL 9.5 MG/DL (8.3-10.6); CARBON DIOXIDE LEVEL 28 MMOL/L (20-31); CHLORIDE LEVEL 103 MMOL/L (98-107); CREATININE FOR GFR 0.84 MG/DL (0.55-1.30); ETHYL ALCOHOL (ETHANOL) 0.003 % (0.000-0.010); GLOMERULAR FILTRATION RATE > 60.0 (>45); GLUCOSE, FASTING 155 MG/DL (74-106); POTASSIUM SERUM 4.6 MMOL/L (3.5-5.1); SODIUM LEVEL 141 MMOL/L (136-145); THYROID STIMULATING HORMONE 4.636 uIU/ML (0.55-4.78)
[2022-07-12 17:10] LABS: SALICYLATE LEVEL < 3.0 MG/DL (<30)
[2022-07-12 17:17] LABS: RSV AMPLIFICATION NEGATIVE (NEGATIVE)
[2022-07-13] MEDS ORDERED: HOME MED LIST COMPLETE! XX SCH (00:15)
[2022-07-13] MEDS ORDERED: ALBU8.5H PO (00:15)
[2022-07-13] MEDS ORDERED: DEBR6.5S4 AU (00:15)
[2022-07-13 00:16] LABS: AMPHETAMINES LEVEL URINE NEGATIVE (NEGATIVE); BARBITURATES URINE NEGATIVE (NEGATIVE); BENZODIAZEPINES URINE NEGATIVE (NEGATIVE); CANNABINOIDS URINE NEGATIVE (NEGATIVE); COCAINE METABOLITE URINE NEGATIVE (NEGATIVE); METHADONE URINE NEGATIVE (NEGATIVE); OPIATES URINE NEGATIVE (NEGATIVE); PHENCYCLIDINE URINE NEGATIVE (NEGATIVE)
[2022-07-14] MEDS ORDERED: PILL CUTTER 1 EACH XX ONE (08:16)
[2022-07-14] MEDS ORDERED: LOSARTAN 50MG TABLET PO SCH (09:00)
[2022-07-14] MEDS ORDERED: ASPIRIN 81MG ENTERIC TABLET PO SCH (09:00)
[2022-07-14] MEDS ORDERED: oxyBUTYnin *DITROPAN XL* 5 MG TABCR PO SCH (09:00)
[2022-07-14] MEDS ORDERED: OMEPRAZOLE 20MG CAP PO SCH (09:00)
[2022-07-14 11:29] LABS: RSV AMPLIFICATION NEGATIVE (NEGATIVE)
[2022-07-14] MEDS ORDERED: MOM 30ML SUSPENSION UDC PO PRN (12:50)
[2022-07-14] MEDS ORDERED: ALBUTEROL 90 MCG/ACT 8GM HFA INHALER INH PRN (12:50)
[2022-07-14] MEDS ORDERED: IBUPROFEN 400MG TAB PO PRN (12:50)
[2022-07-14] MEDS ORDERED: MAALOX 30 ML SUSP *UDC PO PRN (12:50)
[2022-07-14] MEDS ORDERED: traZODone 50 MG TAB PO PRN (12:50)
[2022-07-14 18:23] VITALS: BP 178/98
[2022-07-14] MEDS ORDERED: DULoxetine 30MG CAPSULE (CYMBALTA) PO SCH (21:00)
[2022-07-14] MEDS: DULoxetine 30MG CAPSULE (CYMBALTA) PO SCH (21:59)
[2022-07-14] MEDS: CARBAMIDE PEROXIDE 6.5% OTIC SOLN 15ML AU SCH (21:59)
[2022-07-15 06:27] VITALS: BP 154/90
[2022-07-15] MEDS: NICOTINE 21MG/24HR 1 EA TRANSDERMAL TD SCH (09:00)
[2022-07-15] MEDS: CARBAMIDE PEROXIDE 6.5% OTIC SOLN 15ML AU SCH ×2 (09:36→21:16)
[2022-07-15] MEDS ORDERED: ASPIRIN 325 MG TAB PO SCH (11:20)
[2022-07-15 12:05] VITALS: BP 170/100
[2022-07-15] MEDS: LOSARTAN 50MG TABLET PO SCH (12:06)
[2022-07-15] MEDS: ASPIRIN 81MG ENTERIC TABLET PO SCH (12:06)
[2022-07-15] MEDS: OMEPRAZOLE 20MG CAP PO SCH (12:06)
[2022-07-15] MEDS: oxyBUTYnin *DITROPAN XL* 5 MG TABCR PO SCH (12:32)
[2022-07-15 13:34] VITALS: BP 122/84
[2022-07-15 16:13] VITALS: BP 150/96
[2022-07-15] MEDS: DULoxetine 30MG CAPSULE (CYMBALTA) PO SCH (21:16)
[2022-07-16 06:13] VITALS: BP 142/90
[2022-07-16] MEDS: NICOTINE 21MG/24HR 1 EA TRANSDERMAL TD SCH (09:00)
[2022-07-16] MEDS: OMEPRAZOLE 20MG CAP PO SCH (09:24)
[2022-07-16] MEDS: CARBAMIDE PEROXIDE 6.5% OTIC SOLN 15ML AU SCH ×2 (09:24→21:38)
[2022-07-16] MEDS: ASPIRIN 81MG ENTERIC TABLET PO SCH (09:25)
[2022-07-16] MEDS: oxyBUTYnin *DITROPAN XL* 5 MG TABCR PO SCH (09:25)
[2022-07-16] MEDS: LOSARTAN 50MG TABLET PO SCH (09:25)
[2022-07-16] MEDS ORDERED: cloNIDine 0.1MG TABLET PO SCH (11:15)
[2022-07-16 18:07] VITALS: BP 120/56
[2022-07-16 20:31] VITALS: BP 126/60
[2022-07-16 21:10] VITALS: BP_SYST 100; BP_SYST 106; BP_SYST 127; BP_DIAS 50; BP_DIAS 54; BP_DIAS 60
[2022-07-16] MEDS: DULoxetine 30MG CAPSULE (CYMBALTA) PO SCH (21:38)
[2022-07-17 06:34] VITALS: BP 146/67
[2022-07-17] MEDS: NICOTINE 21MG/24HR 1 EA TRANSDERMAL TD SCH (09:00)
[2022-07-17] MEDS: OMEPRAZOLE 20MG CAP PO SCH (09:51)
[2022-07-17] MEDS: ASPIRIN 81MG ENTERIC TABLET PO SCH (09:51)
[2022-07-17] MEDS: LOSARTAN 50MG TABLET PO SCH (09:51)
[2022-07-17] MEDS: oxyBUTYnin *DITROPAN XL* 5 MG TABCR PO SCH (09:51)
[2022-07-17] MEDS: CARBAMIDE PEROXIDE 6.5% OTIC SOLN 15ML AU SCH ×2 (09:51→22:14)
[2022-07-17 18:00] VITALS: BP 117/63
[2022-07-17] MEDS: DULoxetine 30MG CAPSULE (CYMBALTA) PO SCH (22:14)
[2022-07-18 06:48] VITALS: BP 142/74
[2022-07-18] MEDS: NICOTINE 21MG/24HR 1 EA TRANSDERMAL TD SCH (09:00)
[2022-07-18] MEDS: CARBAMIDE PEROXIDE 6.5% OTIC SOLN 15ML AU SCH (09:07)
[2022-07-18] MEDS: oxyBUTYnin *DITROPAN XL* 5 MG TABCR PO SCH (09:08)
[2022-07-18] MEDS: LOSARTAN 50MG TABLET PO SCH (09:08)
[2022-07-18] MEDS: ASPIRIN 81MG ENTERIC TABLET PO SCH (09:08)
[2022-07-18] MEDS: OMEPRAZOLE 20MG CAP PO SCH (09:08)
[2022-07-18 18:17] VITALS: BP 126/70
[2022-07-18] MEDS: DULoxetine 30MG CAPSULE (CYMBALTA) PO SCH (21:25)
[2022-07-19 06:35] VITALS: BP 164/80
[2022-07-19] MEDS: NICOTINE 21MG/24HR 1 EA TRANSDERMAL TD SCH (09:00)
[2022-07-19] MEDS: OMEPRAZOLE 20MG CAP PO SCH (09:51)
[2022-07-19] MEDS: oxyBUTYnin *DITROPAN XL* 5 MG TABCR PO SCH (09:51)
[2022-07-19] MEDS: LOSARTAN 50MG TABLET PO SCH (09:51)
[2022-07-19] MEDS: ASPIRIN 81MG ENTERIC TABLET PO SCH (09:52)
[2022-07-19 16:25] VITALS: BP 144/67
[2022-07-19] MEDS: DULoxetine 30MG CAPSULE (CYMBALTA) PO SCH (21:42)
[2022-07-20 06:26] VITALS: BP 134/62
[2022-07-20] MEDS ORDERED: oxyBUTYnin *DITROPAN XL* 5 MG TABCR PO SCH (09:00)
[2022-07-20] MEDS: NICOTINE 21MG/24HR 1 EA TRANSDERMAL TD SCH (09:00)
[2022-07-20] MEDS: LOSARTAN 50MG TABLET PO SCH (09:44)
[2022-07-20] MEDS: OMEPRAZOLE 20MG CAP PO SCH (09:44)
[2022-07-20] MEDS: ASPIRIN 81MG ENTERIC TABLET PO SCH (09:44)
[2022-07-20 16:50] VITALS: BP 130/66
[2022-07-20] MEDS: DULoxetine 30MG CAPSULE (CYMBALTA) PO SCH (20:15)
[2022-07-21] MEDS ORDERED: DITR5TAB PO (09:10)
[2022-07-21] MEDS ORDERED: DULO30CA9 PO (09:10)
[2022-07-21] MEDS ORDERED: NICO21PAT TD (09:10)
[2022-07-21] MEDS: NICOTINE 21MG/24HR 1 EA TRANSDERMAL TD SCH (10:02)
[2022-07-21 10:03] VITALS: BP 166/86
[2022-07-21] MEDS: ASPIRIN 81MG ENTERIC TABLET PO SCH (10:03)
[2022-07-21] MEDS: LOSARTAN 50MG TABLET PO SCH (10:03)
[2022-07-21] MEDS: OMEPRAZOLE 20MG CAP PO SCH (10:03)
[2022-07-21] MEDS ORDERED: oxyBUTYnin *DITROPAN XL* 5 MG TABCR PO SCH (21:00)
== END 2022-07-21 14:45 | disposition home or self-care (01) | DRG 882 ==
LOC: M ED 17:01 → M ED INP 07-14 12:46 → M PSY 07-14 18:12
PROVIDERS: ADMIT Student in an Organized Health Care Education/Training Program; ATTEND Psychiatry & Neurology Psychiatry
DX: F43.10 Post-traumatic stress disorder, unspecified (principal); F32.89 Other specified depressive episodes; Z86.73 Personal history of transient ischemic attack (TIA), and cerebral infarction without residual deficits; I11.0 Hypertensive heart disease with heart failure; R45.850 Homicidal ideations; Z91.14 Patient's other noncompliance with medication regimen; Z88.8 Allergy status to other drugs, medicaments and biological substances; Z79.82 Long term (current) use of aspirin; Z79.899 Other long term (current) drug therapy; F41.9 Anxiety disorder, unspecified; E78.00 Pure hypercholesterolemia, unspecified; J44.9 Chronic obstructive pulmonary disease, unspecified; E66.01 Morbid (severe) obesity due to excess calories; K21.9 Gastro-esophageal reflux disease without esophagitis; I50.9 Heart failure, unspecified; R26.89 Other abnormalities of gait and mobility; E73.9 Lactose intolerance, unspecified; F17.200 Nicotine dependence, unspecified, uncomplicated; I45.10 Unspecified right bundle-branch block

== ENCOUNTER 2023-11-19 06:45 | Emergency (ER) | payer MEDICARE, OTHER ==
[~2023-11-19] VITALS: Ht 162.6 cm; Wt 121.7 kg
[~2023-11-19 06:45] MED LIST changes: +ALBU8.5H PO; +DEBR6.5S4 AU; +DITR5TAB PO; -FLUO-215 TOP; +FLUO5OI TOP; -LOSA100T45 PO; +LOSA100T46 PO; +NICO21PAT TD; -OXYB5TAB10; +OXYB5TAB14
[2023-11-19 06:57] VITALS: TEMP 98.4
[2023-11-19] MEDS ORDERED: ADV100INH INH (07:57)
[2023-11-19] MEDS ORDERED: VALS1TAB66 PO (07:57)
[2023-11-19] MEDS ORDERED: ALBU8.5H INH (07:57)
[2023-11-19] MEDS ORDERED: OXYB5TAB14 PO (07:57)
[2023-11-19 08:14] VITALS: BP 176/82; O2SAT 98
== END 2023-11-19 08:17 | disposition home or self-care (01) ==
LOC: M ED 06:45
DX: S40.022A Contusion of left upper arm, initial encounter (principal); W19.XXXA Unspecified fall, initial encounter; R26.9 Unspecified abnormalities of gait and mobility; Z91.148 Patient's other noncompliance with medication regimen for other reason; E78.5 Hyperlipidemia, unspecified; K21.9 Gastro-esophageal reflux disease without esophagitis; F17.200 Nicotine dependence, unspecified, uncomplicated; F10.10 Alcohol abuse, uncomplicated; Z86.79 Personal history of other diseases of the circulatory system; Z88.8 Allergy status to other drugs, medicaments and biological substances; Z79.52 Long term (current) use of systemic steroids; Z79.811 Long term (current) use of aromatase inhibitors; Z79.83 Long term (current) use of bisphosphonates; Z79.899 Other long term (current) drug therapy; Y92.009 Unspecified place in unspecified non-institutional (private) residence as the place of occurrence of the external cause; Y93.9 Activity, unspecified; Y99.9 Unspecified external cause status

== ENCOUNTER 2023-11-28 13:01 | Inpatient (IN) | payer MEDICAID, MEDICARE ==
[~2023-11-28] VITALS: Ht 162.6 cm; Wt 124.7 kg
[~2023-11-28 13:01] MED LIST changes: +ADV100INH INH; +ALBU8.5H INH; +OXYB5TAB14 PO; +VALS1TAB66 PO
[2023-11-28 13:51] LABS: HEMATOCRIT 42.6 % (36.0-47.0); HEMOGLOBIN 13.6 g/dl (12.0-15.5); MEAN CORPUSCULAR HGB CONC 31.9 g/dl (32.0-36.5); MEAN CORPUSCULAR VOLUME 87.7 fl (80.0-96.0); PLATELET COUNT, AUTOMATED 295 10^3/uL (150-450); RED BLOOD COUNT 4.86 10^6/uL (4.00-5.40); WHITE BLOOD COUNT 10.8 10^3/uL (4.0-10.0)
[2023-11-28 14:09] LABS: ETHYL ALCOHOL (ETHANOL) < 0.003 % (0.000-0.010)
[2023-11-28 14:10] LABS: ALBUMIN 3.9 G/DL (3.2-5.2); ALKALINE PHOSPHATASE 97 U/L (46-116); ALT/SGPT 31 U/L (7.0-40); AST/SGOT 17 U/L (<34); BILIRUBIN,DIRECT 0.1 MG/DL (<0.4); BILIRUBIN,TOTAL 0.5 MG/DL (0.3-1.2); BLOOD UREA NITROGEN 17 MG/DL (9-23); CALCIUM LEVEL 9.8 MG/DL (8.3-10.6); CARBON DIOXIDE LEVEL 26 MMOL/L (20-31); CHLORIDE LEVEL 108 MMOL/L (98-107); CREATININE FOR GFR 0.87 MG/DL (0.55-1.30); GLOMERULAR FILTRATION RATE > 60.0 (>45); GLUCOSE, FASTING 105 MG/DL (74-106); POTASSIUM SERUM 4.1 MMOL/L (3.5-5.1); SALICYLATE LEVEL < 3.0 MG/DL (<30); SODIUM LEVEL 136 MMOL/L (136-145)
[2023-11-28 14:12] LABS: THYROID STIMULATING HORMONE 2.156 uIU/ML (0.55-4.78)
[2023-11-28] MEDS ORDERED: ADV100INH INH (15:37)
[2023-11-28] MEDS ORDERED: VALS1TAB66 PO (15:37)
[2023-11-28] MEDS ORDERED: OXYB5TAB14 PO (15:37)
[2023-11-28] MEDS ORDERED: HOME MED LIST COMPLETE! XX SCH (15:40)
[2023-11-28 18:32] LABS: AMPHETAMINES LEVEL URINE NEGATIVE (NEGATIVE); BARBITURATES URINE NEGATIVE (NEGATIVE); BENZODIAZEPINES URINE NEGATIVE (NEGATIVE); COCAINE METABOLITE URINE NEGATIVE (NEGATIVE); METHADONE URINE NEGATIVE (NEGATIVE); OPIATES URINE NEGATIVE (NEGATIVE)
[2023-11-28 18:33] LABS: CANNABINOIDS URINE NEGATIVE (NEGATIVE); PHENCYCLIDINE URINE NEGATIVE (NEGATIVE)
[2023-11-28] MEDS ORDERED: MAALOX 30 ML SUSP *UDC PO PRN ×2 (20:10)
[2023-11-28] MEDS ORDERED: IBUPROFEN 400MG TAB PO PRN (20:10)
[2023-11-28] MEDS ORDERED: MOM 30ML SUSPENSION UDC PO PRN ×2 (20:10)
[2023-11-28] MEDS ORDERED: traZODone 50 MG TAB PO PRN (20:10)
[2023-11-28] MEDS ORDERED: diphenhydrAMINE 25MG CAP PO PRN (20:10)
[2023-11-28] MEDS ORDERED: ACETAMINOPHEN TAB 650MG DOSE (2X325MG) PO PRN (20:10)
[2023-11-28 20:57] VITALS: BP 136/72; TEMP 97.2; O2SAT 99
[2023-11-29 06:09] VITALS: BP 154/84; TEMP 97.1; O2SAT 97
[2023-11-29] MEDS: LIDOCAINE 1% MDV 20ML VIAL IM ONE (11:10)
[2023-11-29 11:26] LABS: PROCALCITONIN <0.04 ng/ml
[2023-11-29] MEDS: BACTRIM 160MG/800MG DS TAB PO SCH (11:38)
[2023-11-29] MEDS: oxyBUTYnin 5 MG TAB PO SCH (11:38)
[2023-11-29 16:04] VITALS: BP 144/82; TEMP 98; O2SAT 96
[2023-11-29] MEDS: IBUPROFEN 400MG TAB PO PRN (16:43)
[2023-11-29] MEDS: ADVAIR HFA 45/21MCG INHALER INH SCH (21:05)
[2023-11-29] MEDS: traZODone 50 MG TAB PO PRN (21:07)
[2023-11-30 06:23] VITALS: BP 168/81; TEMP 96.9; O2SAT 98
[2023-11-30 07:24] LABS: BASO # 0.1 10^3/uL (0.0-0.2); BASO % 0.7 % (0.0-1.0); EOS # 0.3 10^3/uL (0.0-0.5); EOS % 3.5 % (0.0-3.0); HEMATOCRIT 40.2 % (36.0-47.0); HEMOGLOBIN 12.4 g/dl (12.0-15.5); LYMPH # 2.7 10^3/uL (1.5-5.0); LYMPH % 35.3 % (24.0-44.0); MEAN CORPUSCULAR HEMOGLOBIN 27.7 pg (27.0-33.0); MEAN CORPUSCULAR HGB CONC 30.8 g/dl (32.0-36.5); MEAN CORPUSCULAR VOLUME 89.7 fl (80.0-96.0); MONO # 0.5 10^3/uL (0.0-0.8); NEUTROPHILS # 4.1 10^3/uL (1.5-8.5); NEUTROPHILS % 53.2 % (36.0-66.0); PLATELET COUNT, AUTOMATED 234 10^3/uL (150-450); RED BLOOD COUNT 4.48 10^6/uL (4.00-5.40); WHITE BLOOD COUNT 7.7 10^3/uL (4.0-10.0)
[2023-11-30 08:00] LABS: CALCIUM LEVEL 9.1 MG/DL (8.3-10.6); GLOMERULAR FILTRATION RATE 58.9 (>45); POTASSIUM SERUM 4.5 MMOL/L (3.5-5.1)
[2023-11-30] MEDS: VALSARTAN 80 MG TAB (DIOVAN) PO SCH (10:28)
[2023-11-30] MEDS: ASPIRIN 81MG ENTERIC TABLET PO SCH (10:29)
[2023-11-30 17:59] VITALS: BP 142/69; TEMP 97.7
[2023-12-01 06:36] VITALS: BP 146/66; TEMP 97; O2SAT 100
[2023-12-01 09:16] VITALS: BP 141/80
[2023-12-01] MEDS: SERTRALINE HCL 25 MG TABLET PO SCH (10:33)
[2023-12-01 14:30] VITALS: BP 131/59; TEMP 98.3; O2SAT 96
[2023-12-02 06:54] VITALS: BP 138/88; TEMP 97.3; O2SAT 96
[2023-12-02 18:36] VITALS: BP 145/75; TEMP 97.5
[2023-12-03 06:45] VITALS: BP 160/70; TEMP 97.3; O2SAT 98
[2023-12-03 16:10] VITALS: BP 143/67; TEMP 96.9; O2SAT 99
[2023-12-03] MEDS: BREXPIPRAZOLE 0.5MG TABLET (REXULTI) PO SCH (21:32)
[2023-12-04 08:33] LABS: CHOLESTEROL RISK RATIO 3.12 (<5); LDL CHOLESTEROL 69.6 MG/DL (<100)
[2023-12-04] MEDS: SERTRALINE HCL 50 MG TAB PO SCH (09:00)
[2023-12-04 16:29] VITALS: BP 134/62; TEMP 98; O2SAT 97
[2023-12-05 06:42] VITALS: BP 139/66; TEMP 97; O2SAT 96
[2023-12-05] MEDS: ACETAMINOPHEN TAB 650MG DOSE (2X325MG) PO PRN (09:23)
[2023-12-05 16:32] VITALS: BP 138/67; TEMP 97.7; O2SAT 98
[2023-12-06 06:30] VITALS: BP 158/82; TEMP 97; O2SAT 98
[2023-12-06 16:19] VITALS: BP 143/70; TEMP 98.3; O2SAT 97
[2023-12-07 06:28] VITALS: BP 148/81; TEMP 98.1; O2SAT 97
[2023-12-07 17:43] VITALS: BP 134/78; TEMP 97.7; O2SAT 96
[2023-12-07] MEDS: diphenhydrAMINE 25MG CAP PO PRN (20:46)
[2023-12-07] MEDS: ALBUTEROL 90 MCG/ACT 8GM HFA INHALER INH PRN (22:42)
[2023-12-08 06:28] VITALS: BP 151/68; TEMP 97; O2SAT 97
[2023-12-08 17:37] VITALS: BP 144/82; TEMP 98.3; O2SAT 96
[2023-12-09 06:19] VITALS: BP 156/92; TEMP 96.7; O2SAT 96
[2023-12-09 17:22] VITALS: BP 146/76; TEMP 97.5; O2SAT 94
[2023-12-10 07:01] VITALS: BP 161/79; TEMP 96.5; O2SAT 96
[2023-12-10 08:48] VITALS: BP 161/79
[2023-12-10] MEDS ORDERED: ASPI81TA26 PO (08:56)
[2023-12-10] MEDS ORDERED: SERT50TA29 PO (08:56)
[2023-12-10] MEDS ORDERED: ADV100INH INH (08:56)
[2023-12-10] MEDS ORDERED: TRAZ-252 PO (08:56)
[2023-12-10] MEDS ORDERED: ALBU8.5H PO (08:56)
[2023-12-10] MEDS ORDERED: AMLO1TAB25 PO (08:56)
[2023-12-10] MEDS ORDERED: OXYB5TAB14 PO (08:56)
[2023-12-10] MEDS ORDERED: REXU1TAB2 PO (08:56)
[2023-12-11] MEDS ORDERED: TRAZ-252 PO (19:13)
[2023-12-11] MEDS ORDERED: OXYB5TAB14 PO (19:13)
[2023-12-11] MEDS ORDERED: REXU1TAB2 PO (19:13)
[2023-12-11] MEDS ORDERED: SERT-141 PO (19:13)
[2023-12-11] MEDS ORDERED: FLUT1BLS4 INH (19:13)
[2023-12-11] MEDS ORDERED: VENTAER INH (19:13)
[2023-12-11] MEDS ORDERED: ASPI81CH33 PO (19:13)
== END 2023-12-10 14:31 | disposition home or self-care (01) | DRG 754 ==
LOC: M ED 13:54 → M ED INP 20:08 → M PSY 20:58
PROVIDERS: ADMIT Student in an Organized Health Care Education/Training Program; ATTEND Student in an Organized Health Care Education/Training Program
PROC: 0H96XZZ Drainage of Back Skin, External Approach (ICD-10-PCS; principal; 2023-11-29)
DX: F32.A Depression, unspecified (principal); I10 Essential (primary) hypertension; R45.851 Suicidal ideations; J44.9 Chronic obstructive pulmonary disease, unspecified; Z79.899 Other long term (current) drug therapy; Z79.82 Long term (current) use of aspirin; Z88.8 Allergy status to other drugs, medicaments and biological substances; F31.9 Bipolar disorder, unspecified; Z86.73 Personal history of transient ischemic attack (TIA), and cerebral infarction without residual deficits; F63.9 Impulse disorder, unspecified; N32.81 Overactive bladder; L72.3 Sebaceous cyst

== ENCOUNTER 2023-12-11 13:09 | Emergency (ER) | payer MEDICAID, MEDICARE, OTHER ==
[~2023-12-11] VITALS: Ht 162.6 cm; Wt 126.7 kg
[~2023-12-11 13:09] MED LIST changes: +REXU1TAB2 PO; +SERT50TA29 PO; +TRAZ-252 PO
[2023-12-11 14:13] LABS: HEMATOCRIT 39.7 % (36.0-47.0); HEMOGLOBIN 12.5 g/dl (12.0-15.5); MEAN CORPUSCULAR HEMOGLOBIN 28.1 pg (27.0-33.0); MEAN CORPUSCULAR HGB CONC 31.5 g/dl (32.0-36.5); MEAN CORPUSCULAR VOLUME 89.2 fl (80.0-96.0); PLATELET COUNT, AUTOMATED 277 10^3/uL (150-450); RED BLOOD COUNT 4.45 10^6/uL (4.00-5.40); WHITE BLOOD COUNT 9.4 10^3/uL (4.0-10.0)
[2023-12-11 14:24] LABS: ETHYL ALCOHOL (ETHANOL) 0.006 % (0.000-0.010)
[2023-12-11 14:26] LABS: SALICYLATE LEVEL < 3.0 MG/DL (<30)
[2023-12-11 14:27] LABS: ALBUMIN 3.7 G/DL (3.2-5.2); ALKALINE PHOSPHATASE 105 U/L (46-116); ALT/SGPT 18 U/L (7.0-40); AST/SGOT 14 U/L (<34); BILIRUBIN,DIRECT 0.1 MG/DL (<0.4); BILIRUBIN,TOTAL 0.4 MG/DL (0.3-1.2); BLOOD UREA NITROGEN 21 MG/DL (9-23); CALCIUM LEVEL 9.6 MG/DL (8.3-10.6); CARBON DIOXIDE LEVEL 27 MMOL/L (20-31); CHLORIDE LEVEL 105 MMOL/L (98-107); CREATININE FOR GFR 0.72 MG/DL (0.55-1.30); GLOMERULAR FILTRATION RATE > 60.0 (>45); GLUCOSE, FASTING 107 MG/DL (74-106); POTASSIUM SERUM 4.1 MMOL/L (3.5-5.1); SODIUM LEVEL 139 MMOL/L (136-145); TOTAL PROTEIN 6.9 G/DL (5.7-8.2)
[2023-12-11 14:28] LABS: THYROID STIMULATING HORMONE 5.672 uIU/ML (0.55-4.78)
[2023-12-11] MEDS ORDERED: TRAZ-252 PO (19:13)
[2023-12-11] MEDS ORDERED: VENTAER INH (19:13)
[2023-12-11] MEDS ORDERED: SERT-141 PO (19:13)
[2023-12-11] MEDS ORDERED: ASPI81CH33 PO (19:13)
[2023-12-11] MEDS ORDERED: FLUT1BLS4 INH (19:13)
[2023-12-11] MEDS ORDERED: REXU1TAB2 PO (19:13)
[2023-12-11] MEDS ORDERED: OXYB5TAB14 PO (19:13)
[2023-12-11] MEDS ORDERED: HOME MED LIST COMPLETE! XX SCH (19:15)
[2023-12-12] MEDS ORDERED: ALBUTEROL 90 MCG/ACT 8GM HFA INHALER INH PRN (07:30)
[2023-12-12] MEDS: ADVAIR HFA 45/21MCG INHALER INH SCH (08:00)
[2023-12-12] MEDS: ASPIRIN 81MG CHEW TABLET PO SCH (08:39)
[2023-12-12] MEDS: oxyBUTYnin 5 MG TAB PO SCH (08:39)
[2023-12-12] MEDS: SERTRALINE HCL 50 MG TAB PO SCH (08:39)
[2023-12-12] MEDS: VALSARTAN 80 MG TAB (DIOVAN) PO SCH (09:52)
[2023-12-12] MEDS: traZODone 50 MG TAB PO SCH (21:01)
[2023-12-12] MEDS: MUPIROCIN 2% OINT 22 GM TUBE TOP SCH (21:01)
[2023-12-12] MEDS: BREXPIPRAZOLE 0.5MG TABLET (REXULTI) PO SCH (21:01)
[2023-12-15 09:43] VITALS: BP 162/77
[2023-12-15] MEDS ORDERED: MUPI2OI TOP (13:08)
[2023-12-15] MEDS ORDERED: DIOV80TA3 PO (13:08)
[2023-12-15 14:22] VITALS: BP 115/55; TEMP 98.7; O2SAT 98
== END 2023-12-15 15:02 ==
LOC: M ED 13:09
DX: Z60.9 Problem related to social environment, unspecified (principal); I10 Essential (primary) hypertension; J44.9 Chronic obstructive pulmonary disease, unspecified; F32.A Depression, unspecified; F17.210 Nicotine dependence, cigarettes, uncomplicated; F12.10 Cannabis abuse, uncomplicated; F10.10 Alcohol abuse, uncomplicated; Z91.011 Allergy to milk products; Z88.8 Allergy status to other drugs, medicaments and biological substances; Z79.51 Long term (current) use of inhaled steroids; Z79.1 Long term (current) use of non-steroidal anti-inflammatories (NSAID); Z79.899 Other long term (current) drug therapy